=== PATIENT | male | born 1945 ===

== ENCOUNTER 2017-03-28 11:34 | Day surgery (SDC) | payer MEDICARE, OTHER ==
--- NOTE | ~2017-03-28 | EGD ---
EGD REPORT [facility] [address] [place] [address] NAME: FAWAD RUANO JR : [birth year] STATUS : REG [facility] [place] PAT#: [id number] AGE: 71 ADM/REG DATE : 03/28/17 MR#: [id number] REPORT SERV DATE: 03/28/17 DICTATED BY: GENE RAMOS DATE: 03/28/17 REPORT STATUS : Draft TRANSCRIBED BY: [facility] DATE: 03/28/17 Endoscopy Center Patient Name: Fawad Ruano Date of : 1945 Attending MD: GENE RAMOS MD Procedure Date No Time: 03/28/2017 Procedure: Upper GI endoscopy Indications: Heme positive stool Referring MD: MANSOOR DORANTES MD Medicines: Propofol per Anesthesia Complications: No immediate complications. Estimated blood loss: None. Procedure: Pre-Anesthesia Assessment: - After reviewing the risks and benefits, the patient was deemed in satisfactory condition to undergo the procedure. - Prior to the procedure, a History and Physical was performed, and patient medications and allergies were reviewed. The patient's tolerance of previous anesthesia was also reviewed. The risks and benefits of the procedure and the sedation options and risks were discussed with the patient. All questions were answered, and informed consent was obtained. Prior Anticoagulants: The patient has taken no previous anticoagulant or antiplatelet agents. ASA Grade Assessment: III - A patient with severe systemic disease. After reviewing the risks and benefits, the patient was deemed in satisfactory condition to undergo the procedure. After obtaining informed consent, the endoscope was passed under direct vision. Throughout the procedure, the patient's blood pressure, pulse, and oxygen saturations were monitored continuously. The GIF [id number] was introduced through the mouth, and advanced to the third part of duodenum. The upper GI endoscopy was accomplished without difficulty. The patient tolerated the procedure well. Findings: The examined esophagus was normal. Patchy moderate inflammation characterized by congestion (edema), erosions, erythema and granularity was found in the gastric antrum. Biopsies were taken with a cold forceps for histology. Estimated blood loss: none. The gastroesophageal junction (on retroflexion) was normal. Patchy moderate inflammation characterized by erosions and erythema was found in the duodenal bulb. EGD REPORT [address] [address] NAME: FAWAD RUANO : [birth year] STATUS : REG [facility] [place] PAT#: [id number] AGE: 71 ADM/REG DATE : 03/28/17 MR#: [id number] REPORT SERV DATE: 03/28/17 DICTATED BY: GENE RAMOS DATE: 03/28/17 REPORT STATUS : Draft TRANSCRIBED BY: [employer] DATE: 03/28/17 Impression: - Normal esophagus. - Gastritis. Biopsied. - Normal gastroesophageal junction. - Duodenitis. Recommendation: - Discharge patient to home (ambulatory). - Return to previous diet. - Continue present medications. - Take Prilosec (omeprazole) 40 mg daily before breakfast for 2 months. - Await pathology results. - Perform a colonoscopy today. - Patient has a contact number available for emergencies. The signs and symptoms of potential delayed complications were discussed with the patient. Return to normal activities tomorrow. Written discharge instructions were provided to the patient. Procedure Code(s): --- Professional --- 17350, Esophagogastroduodenoscopy, flexible, transoral; with biopsy, single or multiple Diagnosis Code(s): --- Professional --- K29.70, Gastritis, unspecified, without bleeding K29.80, Duodenitis without bleeding R19.5, Other fecal abnormalities CPT copyright 2013 [employer] [place] [employer]. All rights reserved. The codes documented in this report are preliminary and upon motor vehicle compliance analyst review may be revised to meet current compliance requirements. GENE RAOMS MD 03/28/2017 1:24 PM This report has been signed electronically. Number of Addenda: 0 Note Initiated On: 03/28/2017 1:07 PM Scope Withdrawal Time 0 hours 0 minutes 0 seconds [address] [place] [address]
--- NOTE | ~2017-03-28 | EGD ---
EGD REPORT [facility] [address] [place] [address] NAME: FAWAD RUANO JR : [birth year] STATUS : REG [facility] [place] PAT#: [id number] AGE: 71 ADM/REG DATE : 03/28/17 MR#: [id number] REPORT SERV DATE: 03/28/17 DICTATED BY: GENE RAMOS DATE: 03/28/17 REPORT STATUS : Draft [facility]ANSCRIBED BY: [facility] DATE: 03/28/17 Endoscopy Center Patient Name: Fawad Ruano. Date of : 1945 Attending MD: GENE RAMOS MD Procedure Date No Time: 03/28/2017 Procedure: Colonoscopy Indications: Heme positive stool, Follow-up for history of adenomatous polyps in the colon Referring MD: MANSOOR DORANTES MD Medicines: Propofol per Anesthesia Complications: No immediate complications. Estimated blood loss: None. Procedure: Pre-Anesthesia Assessment: - After reviewing the risks and benefits, the patient was deemed in satisfactory condition to undergo the procedure. - Prior to the procedure, a History and Physical was performed, and patient medications and allergies were reviewed. The patient's tolerance of previous anesthesia was also reviewed. The risks and benefits of the procedure and the sedation options and risks were discussed with the patient. All questions were answered, and informed consent was obtained. Prior Anticoagulants: The patient has taken no previous anticoagulant or antiplatelet agents. ASA Grade Assessment: III - A patient with severe systemic disease. After reviewing the risks and benefits, the patient was deemed in satisfactory condition to undergo the procedure. After I obtained informed consent, the scope was passed under direct vision. Throughout the procedure, the patient's blood pressure, pulse, and oxygen saturations were monitored continuously. The CF [id number] was introduced through the anus and advanced to the cecum, identified by appendiceal orifice and ileocecal valve. The colonoscopy was somewhat difficult due to the patient's body habitus. The ileocecal valve and appendiceal orifice were photographed. The patient tolerated the procedure well. The quality of the bowel preparation was adequate. The bowel preparation used was an extended prep with polyethylene glycol (PEG) and magnesium citrate. Scope withdrawal time was greater than 10 minutes. Findings: The perianal and digital rectal examinations were normal. Pertinent EGD REPORT [address] [address] NAME: FAWAD RUANO : [birth year] STATUS : REG [facility] [place] PAT#: [id number] AGE: 71 ADM/REG DATE : 03/28/17 MR#: [id number] REPORT SERV DATE: 03/28/17 DICTATED BY: GENE RAMOS DATE: 03/28/17 REPORT STATUS : Draft TRANSCRIBED BY: [employer] DATE: 03/28/17 negatives include normal sphincter tone. Non-bleeding internal hemorrhoids were found during retroflexion and were medium-sized and Grade I (internal hemorrhoids that do not prolapse). Multiple small-mouthed diverticula were found in the sigmoid colon and in the descending colon. There was a small lipoma, 5 mm in diameter, in the ascending colon. There was mild patchy erythema in the sigmoid colon likely related to the bowel prep. The exam was otherwise without abnormality. Impression: - Non-bleeding internal hemorrhoids. - Moderate diverticulosis in the sigmoid colon and in the descending colon. - Small lipoma in the ascending colon. - The examination was otherwise normal. Recommendation: - Discharge patient to home (ambulatory). - High fiber diet indefinitely. - Continue present medications. - Repeat colonoscopy in 5 years for surveillance. - Patient has a contact number available for emergencies. The signs and symptoms of potential delayed complications were discussed with the patient. Return to normal activities tomorrow. Written discharge instructions were provided to the patient. Procedure Code(s): --- Professional --- 70163, Colonoscopy, flexible, proximal to splenic flexure; diagnostic, with or without collection of specimen(s) by brushing or washing, with or without colon decompression (separate procedure) Diagnosis Code(s): --- Professional --- K64.0, First degree hemorrhoids K57.30, Diverticulosis of large intestine without perforation or abscess without bleeding D17.5, Benign lipomatous neoplasm of intra-abdominal organs R19.5, Other fecal abnormalities Z86.010, Personal history of colonic polyps CPT copyright 2013 [employer]. All rights reserved. The codes documented in this report are preliminary and upon supervisor sterile processing review may be revised to meet current compliance requirements. EGD REPORT [facility] [address] [place] [place] [address] NAME: FAWAD RUANO : [birth year] STATUS : REG [facility] [place] PAT#: [id number] AGE: 71 ADM/REG DATE : 03/28/17 MR#: [id number] REPORT SERV DATE: 03/28/17 DICTATED BY: GENE RAMOS. DATE: 03/28/17 REPORT STATUS : Draft TRANSCRIBED BY: [employer] DATE: 03/28/17 GENE RAMOS MD 03/28/2017 1:46 PM This report has been signed electronically. Number of Addenda: 0 Note Initiated On: 03/28/2017 12:58 PM Scope Withdrawal Time 0 hours 10 minutes 31 seconds [address] [address]
[~2017-03-28 11:34] MED LIST: ADVIL PO; DYAZIDE1 CAP PO; LIPITOR20 PO; MAX25 PO; METAMUCIL CAN7 OZ PO; NORCO1 TA1 PO; PCET PO; PHENERGAN SUPP RE; PROSCAR5 PO; T PO; Z-PAK PO; ZOFRAN ODT4 MG SL
== END 2017-03-28 23:59 | disposition home or self-care (01) ==
LOC: DMU 11:34
PROVIDERS: Internal Medicine Gastroenterology
PROC: 0DB68ZX Excision of Stomach, Via Natural or Artificial Opening Endoscopic, Diagnostic (ICD-10-PCS; principal; 2017-03-28 13:15)
PROC: 0DJD8ZZ Inspection of Lower Intestinal Tract, Via Natural or Artificial Opening Endoscopic (ICD-10-PCS; 2017-03-28 13:15)
DX: K29.70 Gastritis, unspecified, without bleeding (principal); K29.80 Duodenitis without bleeding; R19.5 Other fecal abnormalities; K64.0 First degree hemorrhoids; K57.30 Diverticulosis of large intestine without perforation or abscess without bleeding; D17.5 Benign lipomatous neoplasm of intra-abdominal organs; I10 Essential (primary) hypertension; Z86.73 Personal history of transient ischemic attack (TIA), and cerebral infarction without residual deficits; E78.00 Pure hypercholesterolemia, unspecified; H91.90 Unspecified hearing loss, unspecified ear; G47.33 Obstructive sleep apnea (adult) (pediatric); Z79.899 Other long term (current) drug therapy; Z86.010 Personal history of colon polyps; Z88.5 Allergy status to narcotic agent; Z85.46 Personal history of malignant neoplasm of prostate; Z85.528 Personal history of other malignant neoplasm of kidney; Z98.890 Other specified postprocedural states; Z90.5 Acquired absence of kidney; Z99.89 Dependence on other enabling machines and devices; Z87.01 Personal history of pneumonia (recurrent)
CPT/HCPCS: 88305